=== PATIENT | female | born 1995 | race Two or more races ===

== ENCOUNTER 2023-11-17 17:11 | Emergency (ER) | payer SELFPAY ==
[~2023-11-17] VITALS: Ht 152.4 cm; Wt 50.0 kg
[2023-11-17] MEDS ORDERED: MULT9LIQ7 PO (17:16)
[2023-11-17] MEDS: PB/HYOSCY/ATR/SCOP/LIDO/MAALOX 55 ML BOTTLE PO ONE (18:32)
[2023-11-17 18:37] LABS: BASOPHILS % (AUTO) 0.2 % (0.0-2.0); EOSINOPHILS % (AUTO) 0.7 % (1.0-6.0); HEMATOCRIT 39.2 % (36-46); HEMOGLOBIN 13.1 g/dL (12.0-16.0); LYMPHOCYTES # (AUTO) 2.1 K/uL (1.0-4.8); LYMPHOCYTES % (AUTO) 30.2 % (22.0-44.0); MEAN CORPUSCULAR HEMOGLOBIN 28.4 pg (26.0-34.0); MEAN CORPUSCULAR HGB CONC 33.4 G/dL (31.0-37.0); MEAN CORPUSCULAR VOLUME 85 fL (80-100); MONOCYTES # (AUTO) 0.4 K/uL (0.1-1.0); MONOCYTES % (AUTO) 5.5 % (2.0-9.0); NEUTROPHILS # (AUTO) 4.4 K/uL (1.8-7.7); NEUTROPHILS % (AUTO) 63.4 % (40.0-70.0); PLATELET COUNT (AUTO) 344 K/uL (150-450); RED BLOOD CELL COUNT(AUTO) 4.61 MIL/uL (4.00-5.20); RED CELL DISTRIBUTION WIDTH 14.6 % (11.5-14.5)
[2023-11-17 18:44] LABS: ANION GAP 8 mmol/L (8-16); CALCIUM, TOTAL 9.5 mg/dL (8.8-10.5); CARBON DIOXIDE 29 mmol/L (22-29); CHLORIDE 103 mmol/L (98-107); CREATININE 0.61 mg/dL (0.60-1.30); GLOMERULAR FILTR. RATE CALC > 60 mL/min (>60); GLUCOSE,RANDOM 91 mg/dL (70-110); POTASSIUM 3.8 mmol/L (3.5-5.1); SODIUM SERUM 140 mmol/L (136-145); UREA NITROGEN, BLOOD 11 mg/dL (7-18)
[2023-11-17 18:50] LABS: ALANINE AMINOTRANSFERASE 33 U/L (12-78); ALBUMIN 3.9 g/dL (3.4-5.0); ALKALINE PHOSPHATASE 87 U/L (46-116); ASPARTATE AMINOTRANSFERASE 23 U/L (15-37); BILIRUBIN,TOTAL 0.6 mg/dL (0.1-1.0); LIPASE 37 U/L (16-77); TOTAL PROTEIN, SERUM 7.4 g/dL (6.4-8.2)
[2023-11-17 19:15] LABS: APPEARANCE,URINE HAZY (CLEAR); BILIRUBIN,URINE NEGATIVE (NEGATIVE); COLOR,URINE YELLOW (YELLOW); GLUCOSE, URINE (UA) NEGATIVE (NEGATIVE); LEUKOCYTE ESTERASE ,URINE NEGATIVE (NEGATIVE); NITRATE,URINE NEGATIVE (NEGATIVE); OCCULT BLOOD,URINE NEGATIVE (NEGATIVE); PH,URINE 6.5 (5.0-8.0); PROTEIN,URINE NEGATIVE (NEGATIVE); SPECIFIC GRAVITIY, URINE 1.019 (1.003-1.030); UROBILINOGEN,URINE <=1.0 mg/dL (<=1.0)
[2023-11-17] MEDS ORDERED: ONDA-104 PO (19:56)
[2023-11-17] MEDS ORDERED: PANT-31 PO (19:56)
[2023-11-17 20:15] VITALS: BP 119/63; PULSE 68; RESP 16; TEMP 97.3
== END 2023-11-17 21:00 | disposition home or self-care (01) ==
LOC: EMS 17:14
DX: K29.70 Gastritis, unspecified, without bleeding (principal); K21.9 Gastro-esophageal reflux disease without esophagitis
CPT/HCPCS: 80053; 81003; 83690; 84703; 85025; 99283

== ENCOUNTER 2023-12-24 06:16 | Emergency (ER) | payer MEDICAID ==
[~2023-12-24] VITALS: Ht 162.6 cm; Wt 58.0 kg
[~2023-12-24 06:16] MED LIST: MULT9LIQ7 PO; ONDA-104 PO; PANT-31 PO
[2023-12-24 06:32] VITALS: TEMP 98.4
[2023-12-24 07:28] LABS: APPEARANCE,URINE CLEAR (CLEAR); BILIRUBIN,URINE NEGATIVE (NEGATIVE); COLOR,URINE LIGHT YELLOW (YELLOW); GLUCOSE, URINE (UA) NEGATIVE (NEGATIVE); KETONES,URINE NEGATIVE (NEGATIVE); LEUKOCYTE ESTERASE ,URINE LARGE (NEGATIVE); NITRATE,URINE NEGATIVE (NEGATIVE); OCCULT BLOOD,URINE NEGATIVE (NEGATIVE); PROTEIN,URINE NEGATIVE (NEGATIVE); SPECIFIC GRAVITIY, URINE 1.019 (1.003-1.030); UROBILINOGEN,URINE <=1.0 mg/dL (<=1.0)
[2023-12-24 07:51] LABS: BACTERIA,URINE Few /HPF (None Seen); RBC,URINE None Seen /HPF (0-2); SQUAMOUS EPITHELIAL CELL,UR Few /LPF (None Seen)
[2023-12-24 08:40] VITALS: BP 103/64; PULSE 69; RESP 16
[2023-12-24] MEDS ORDERED: FLUC150T61 PO (08:49)
[2023-12-24] MEDS ORDERED: NITR-75 PO (08:49)
== END 2023-12-24 09:15 | disposition home or self-care (01) ==
LOC: EMS 06:17
DX: B37.9 Candidiasis, unspecified (principal); N39.0 Urinary tract infection, site not specified; Z90.49 Acquired absence of other specified parts of digestive tract
CPT/HCPCS: 81001; 87086; 87186; 99283

== ENCOUNTER 2024-02-01 20:39 | Emergency (ER) | payer MEDICAID, OTHER ==
[~2024-02-01] VITALS: Ht 149.9 cm; Wt 50.0 kg
[~2024-02-01 20:39] MED LIST changes: +FLUC150T61 PO; +NITR-75 PO
[2024-02-01 20:49] VITALS: TEMP 98.4
[2024-02-01 21:06] LABS: COVID AG,FIA SOURCE NASAL SWAB
[2024-02-01 21:18] LABS: RAPID GROUP A STREP NEGATIVE (NEGATIVE)
[2024-02-01 21:25] LABS: SARS-COV2 (COVID) ANTIGEN,FIA Negative (Negative)
[2024-02-01 21:32] LABS: INFLUENZA TYPE A NEGATIVE FOR TYPE A (NEGATIVE); INFLUENZA TYPE B NEGATIVE FOR TYPE B (NEGATIVE)
[2024-02-01 23:40] VITALS: BP 122/64; PULSE 80; RESP 16
[2024-02-01] MEDS: OXYMETAZOLINE HCL 0.05% 15 ML NASAL SPRAY NASAL ONE (23:54)
[2024-02-02] MEDS ORDERED: AMOX500C2 PO (00:04)
== END 2024-02-02 00:21 | disposition home or self-care (01) ==
LOC: EMS 20:39
DX: K12.2 Cellulitis and abscess of mouth (principal); K21.9 Gastro-esophageal reflux disease without esophagitis; Z90.49 Acquired absence of other specified parts of digestive tract; Z20.822 Contact with and (suspected) exposure to COVID-19
CPT/HCPCS: 87430; 87804; 99283

== ENCOUNTER 2024-02-02 14:29 | Emergency (ER) | payer OTHER ==
[~2024-02-02] VITALS: Ht 175.3 cm; Wt 50.0 kg
[~2024-02-02 14:29] MED LIST changes: +AMOX500C2 PO
[2024-02-02 14:49] VITALS: BP 95/72; PULSE 105; RESP 16; TEMP 98.9
== END 2024-02-02 17:17 | disposition left against medical advice (07) ==
LOC: EMS 14:52
DX: R06.02 Shortness of breath (principal); R09.81 Nasal congestion; Z53.21 Procedure and treatment not carried out due to patient leaving prior to being seen by health care provider